=== PATIENT | male | born 1950 | race Caucasian/White ===

== ENCOUNTER 2017-08-17 07:07 | Emergency (ER) | payer BC, MEDICARE ==
--- NOTE | 2017-08-17 07:36 | EDM.PDOC ---
ED HPI GENERAL MEDICAL PROBLEM - General Chief Complaint: Genitourinary Problem Stated Complaint: CANNOT PEE Time Seen by Provider: 08/17/17 07:35 Source of Information: Reports: Patient History Limitations: Reports: No Limitations - History of Present Illness INITIAL COMMENTS - FREE TEXT/NARRATIVE: Pt has been able to void since abut 11 pm last nit. He was at a [employer] party and did drink alot of beer at that time. Onset: Today Duration: Hour(s): Location: Reports: Other (pt is unableto void and is very uncomfortable. ) Associated Symptoms: Reports: No Other Symptoms - Related Data Allergies Allergy/AdvReac Type Severity Reaction Status Date / Time No Known Allergies Allergy Verified 08/17/17 07:27 Home Meds: Home Meds Aspirin [Ecotrin] 81 mg PO DAILY 08/17/17 [History] Citalopram Hydrobromide [Celexa] 10 mg PO DAILY 08/17/17 [History] Sildenafil Citrate [Sildenafil] 10 mg PO ASDIRECTED 08/17/17 [History] Simvastatin [Zocor] 20 mg PO BEDTIME 08/17/17 [History] ED ROS GENERAL - Review of Systems Review Of Systems: See Below Constitutional: Reports: No Symptoms HEENT: Reports: No Symptoms Respiratory: Reports: No Symptoms Cardiovascular: Reports: No Symptoms Endocrine: Reports: No Symptoms GI/Abdominal: Reports: Other ( Pain in the supra pupic area. ) : Reports: Urinary Retention, Other (pt has been told that he has a large prostate. ) Musculoskeletal: Reports: No Symptoms Skin: Reports: No Symptoms ED EXAM, RENAL/ - Physical Exam Exam: See Below Text/Narrative:: pt has not been able to void since 11 pm last nite. Exam Limited By: No Limitations General Appearance: Alert, Severe Distress Ears: Normal TMs Nose: Normal Inspection Throat/Mouth: Normal Inspection Head: Atraumatic Neck: Normal Inspection Respiratory/Chest: No Respiratory Distress Cardiovascular: Regular Rate, Rhythm GI/Abdominal: Soft, Non-Tender, Other ( bladder is distended. ) (Male) Exam: Other ( folley cath was inserted. ) Rectal (Males) Exam: Deferred Back Exam: Normal Inspection Extremities: Normal Inspection Neurological: Alert, Oriented, Normal Cognition Course - Vital Signs Last Recorded V/S: Last Vital Signs Temp 36.3 C 08/17/17 07:37 Pulse 75 05/06/18 07:37 Resp 16 08/17/17 07:37 BP 143/86 H 08/17/17 07:37 Pulse Ox 96 08/17/17 07:37 - Orders/Labs/Meds Orders: Active Orders 24 hr Category Date Time Status Diaz Catheter Insertion [Insert Urinary Catheter] [OM. Care 08/17/17 07:45 Ordered PC] Q24H Urinary Catheter Assessment [RC] ASDIRECTED Care 08/17/17 07:40 Active UA W/MICROSCOPIC [URIN] Urgent Lab 08/17/17 07:40 Ordered Labs: Laboratory Tests 08/17/17 Range/Units 07:40 Urine Color Yellow Urine Appearance Clear Urine pH 5.0 (4.5-8.0) Ur Specific [place] 1.015 (1.008-1.030) Urine Protein Negative (NEGATIVE) mg/dL Urine Glucose (UA) Normal (NEGATIVE) mg/dL Urine Ketones Negative (NEGATIVE) mg/dL Urine Occult Blood Moderate (NEGATIVE) Urine Nitrite Negative (NEGAITVE) Urine Bilirubin Negative (NEGATIVE) Urine Urobilinogen Normal (NORMAL) mg/dL Ur Leukocyte Esterase Negative (NEGATIVE) Urine RBC 0-5 (0-5) Urine WBC 0-5 (0-5) Ur Epithelial Cells Rare Amorphous Sediment Not seen Urine Bacteria Not seen Urine Mucus Not seen Meds: Medications Discontinued Medications Generic Name Dose Route Start Last Admin Trade Name Nathen PRN Reason Stop Dose Admin Lidocaine HCl 10 ml 08/17/17 07:39 08/17/17 07:50 Xylocaine 2% Jelly MUCMEM 08/17/17 07:40 10 ml ONETIME ONE Administration Lidocaine HCl Confirm 08/17/17 07:39 08/17/17 07:50 Xylocaine 2% Jelly Administered 08/17/17 07:40 Not Given Dose 10 ml .ROUTE .STK-MED ONE - Re-Assessments/Exams Free Text/Narrative Re-Assessment/Exam: 08/17/17 07:59 pt had over 100cc in his bladder. A diaz was inserted. His urine had no infection. Departure - Departure Time of Disposition: 08:00 Disposition: Home, Self-Care 01 Condition: Fair Clinical Impression: Urinary retention - Discharge Information Referrals: PCP,None [Primary Care Provider] - Forms: ED Department Discharge Care Plan Goals: leave cath in until friday pm or friday am with a leg bag, flomax .4 1 tab daily, check with regular Dr regarding the flomax. - My Orders Last 24 Hours: My Active Orders 08/17/17 07:40 Urinary Catheter Assessment [RC] ASDIRECTED UA W/MICROSCOPIC [URIN] Urgent 08/17/17 07:45 Diaz Catheter Insertion [Insert Urinary Catheter] [OM.PC] Q24H - Assessment/Plan Last 24 Hours: My Active Orders 08/17/17 07:40 Urinary Catheter Assessment [RC] ASDIRECTED UA W/MICROSCOPIC [URIN] Urgent 08/17/17 07:45 Diza Catheter Insertion [Insert Urinary Catheter] [OM.PC] Q24H
[2017-08-17] MEDS ORDERED: Lidocaine 2% Jelly 10 ML Urojet MUCMEM ONE (07:39)
[2017-08-17] MEDS ORDERED: Lidocaine 2% Jelly 10 ML Urojet ONE (07:39)
== END 2017-08-17 08:22 | disposition home or self-care (01) ==
LOC: JP.ED 07:07
DX: R33.9 Retention of urine, unspecified (principal); Z79.82 Long term (current) use of aspirin; Z79.899 Other long term (current) drug therapy
CPT/HCPCS: 51702; 51798; 81001; 99283; 99284-25

== ENCOUNTER 2020-03-11 15:43 | Emergency (ER) | payer MEDICARE, BC ==
--- NOTE | 2020-03-11 16:17 | EDM.PDOC ---
ED HPI GENERAL MEDICAL PROBLEM - General Chief Complaint: ENT Problem Stated Complaint: H.AID BATTERY STUCK Time Seen by Provider: 03/11/20 16:10 Source of Information: Reports: Patient History Limitations: Reports: No Limitations - History of Present Illness INITIAL COMMENTS - FREE TEXT/NARRATIVE: 69 yo male had a piece of his hearing aid fall off in his L ear. Here for retrie kali. 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 (see below) (none) - Related Data Allergies Allergy/AdvReac Type Severity Reaction Status Date / Time No Known Allergies Allergy Verified 03/11/20 16:01 Home Meds: Home Meds Aspirin [Ecotrin EC] 81 mg PO DAILY 08/17/17 [History] Citalopram Hydrobromide [Celexa] 10 mg PO DAILY 08/17/17 [History] Sildenafil Citrate [Sildenafil] 10 mg PO ASDIRECTED 08/17/17 [History] Simvastatin [Zocor] 20 mg PO BEDTIME 08/17/17 [History] Past Medical History HEENT History: Reports: Hard of Hearing, Impaired Vision Cardiovascular History: Reports: High Cholesterol Gastrointestinal History: Reports: GERD Genitourinary History: Reports: Prostate Disorder, Retention, Urinary, Urinary Incontinence Musculoskeletal History: Reports: Back Pain, Chronic Psychiatric History: Reports: Anxiety, Depression - Past Surgical History Head Surgeries/Procedures: Reports: None HEENT Surgical History: Reports: None Cardiovascular Surgical History: Reports: None GI Surgical History: Reports: Colonoscopy Male Surgical History: Reports: Circumcision Musculoskeletal Surgical History: Reports: None Dermatological Surgical History: Reports: None Social & Family History - Tobacco Use Tobacco Use Status *Q: Never Tobacco User Second Hand Smoke Exposure: No - Caffeine Use Caffeine Use: Reports: Coffee - Alcohol Use Days Per Week of Alcohol Use: 7 Number of Drinks Per Day: 1 Total Drinks Per Week: 7 - Recreational Drug Use Recreational Drug Use: No ED ROS ENT - Review of Systems Review Of Systems: See Below Constitutional: Reports: No Symptoms HEENT: Reports: Other (FB L ear) ED EXAM, ENT - Physical Exam Exam: See Below Exam Limited By: No Limitations General Appearance: Alert, WD/WN, No Apparent Distress Ears: Canal Foreign Body (left) Nose: Normal Inspection, No Blood Mouth/Throat: Normal Inspection, Normal Lips Head: Atraumatic, Normocephalic Neck: Normal Inspection Course - Vital Signs Text/Narrative:: FB removed by RN with a forceps. Last Recorded V/S: Last Vital Signs Temp 36.4 C 03/11/20 16:02 Pulse 97 03/11/20 16:02 Resp 16 03/11/20 16:02 BP 156/105 H 03/11/20 16:02 Pulse Ox 96 03/11/20 16:02 Departure - Departure Time of Disposition: 16:16 Disposition: Home, Self-Care 01 Condition: Good Clinical Impression: Foreign body in left ear Qualifiers: Encounter type: initial encounter Qualified Code(s): T16.2XXA - Foreign body in left ear, initial encounter - Discharge Information *PRESCRIPTION DRUG MONITORING PROGRAM REVIEWED*: Not Applicable *COPY OF PRESCRIPTION DRUG MONITORING REPORT IN PATIENT FATOU: Not Applicable Referrals: PCP,None [Primary Care Provider] - Additional Instructions: Recheck as needed. Sepsis Event Note (ED) - Evaluation Sepsis Screening Result: No Definite Risk - Focused Exam Vital Signs: Vital Signs Temp Pulse Resp BP Pulse Ox 03/11/20 16:02 36.4 C 97 16 156/105 H 96 03/11/20 15:57 36.4 C 97 16 156/105 H 96
== END 2020-03-11 16:26 | disposition home or self-care (01) ==
LOC: JP.ED 15:43
DX: T16.2XXA Foreign body in left ear, initial encounter (principal); E78.00 Pure hypercholesterolemia, unspecified; F41.9 Anxiety disorder, unspecified; F32.9 Major depressive disorder, single episode, unspecified; Z79.82 Long term (current) use of aspirin; Z79.899 Other long term (current) drug therapy
CPT/HCPCS: 99282

== ENCOUNTER 2024-04-10 08:40 | Emergency (ER) | payer BC, MEDICARE, OTHER | END 2024-04-10 09:50 | disposition home or self-care (01) | LOC: JP.ED 08:40 | DX: J01.10 Acute frontal sinusitis, unspecified (principal); E78.00 Pure hypercholesterolemia, unspecified; Z79.82 Long term (current) use of aspirin; Z79.899 Other long term (current) drug therapy | CPT/HCPCS: 87428-QW; 99284 ==

== ENCOUNTER 2024-04-14 14:57 | Emergency (ER) | payer MEDICARE | END 2024-04-14 17:07 | disposition home or self-care (01) | LOC: JP.ED 14:57 | DX: S01.511A Laceration without foreign body of lip, initial encounter (principal); E78.00 Pure hypercholesterolemia, unspecified; Z79.899 Other long term (current) drug therapy; Z79.82 Long term (current) use of aspirin; W11.XXXA Fall on and from ladder, initial encounter | CPT/HCPCS: 99283 ==

== ENCOUNTER 2024-10-16 08:49 | Emergency (ER) | payer MEDICARE | END 2024-10-16 11:11 | disposition home or self-care (01) | LOC: JP.ED 08:49 | DX: R04.0 Epistaxis (principal); E78.00 Pure hypercholesterolemia, unspecified; Z79.82 Long term (current) use of aspirin; Z79.899 Other long term (current) drug therapy | CPT/HCPCS: 99283 ==